=== PATIENT | female | born 1975 | race Caucasian/White ===

== ENCOUNTER 2020-05-31 08:03 | Emergency (ER) | payer MEDICAID, OTHER ==
[2020-05-31 09:20] LABS: A TYPE INFLUENZA AG NEGATIVE (NEGATIVE); B INFLUENZA AG NEGATIVE (NEGATIVE)
--- NOTE | 2020-05-31 09:38 | ER Document Report ---
ED General - General Chief Complaint: Cough Stated Complaint: CONGESTION,COUGH Time Seen by Provider: 05/31/20 09:16 Primary Care Provider: ZENAIDA YBARRA MD [Primary Care Provider] - Follow up as needed - [facility] Notes: Patient is a 44-year-old female with no significant medical history who presents for shortness of breath and productive cough for the past week. Patient states she had a telemed visit with her primary care a couple days ago and was prescribed an albuterol inhaler and doxycycline. Patient endorses nausea and a couple episodes of vomiting but attributes the symptoms to side effects of the doxycycline. Patient reports nasal congestion, myalgias, fatigue, and chills, but denies chest pain, fever, abdominal pain, diarrhea, sore throat, and headache. Patient also reports not feeling well for most of the summer and has had intermittent bilateral ankle swelling with redness. She also had an episode of her hips giving out causing her to fall over that occurred 2 weeks ago. - Related Data Allergies/Adverse Reactions: No Known Allergies Allergy (Unverified 05/31/20 08:16) Home Medications: Doxycycline Past Medical History - General Information source: Patient - Social History Smoking Status: Current Every Day Smoker Chew tobacco use (# tins/day): No Frequency of alcohol use: None Drug Abuse: None Family History: Reviewed & Not Pertinent Patient has homicidal ideation: No - Immunizations Hx Diphtheria, Pertussis, Tetanus Vaccination: No Review of Systems - Review of Systems Constitutional: No symptoms reported EENT: No symptoms reported Cardiovascular: No symptoms reported Respiratory: See HPI Gastrointestinal: No symptoms reported Genitourinary: No symptoms reported Female Genitourinary: No symptoms reported Musculoskeletal: See HPI Skin: No symptoms reported Hematologic/Lymphatic: No symptoms reported Neurological/Psychological: See HPI Physical Exam - Vital signs Vitals: Temp Pulse Resp BP Pulse Ox 97.7 F 96 18 130/81 H 95 05/31/20 08:08 05/31/20 08:08 05/31/20 08:08 05/31/20 08:08 05/31/20 08:08 - Notes Notes: PHYSICAL EXAMINATION: VITALS: Vitals reviewed and within normal limits. GENERAL: Patient in no acute distress but becomes tearful when discussing her symptoms. She is sitting upright in the bed. HEAD: Atraumatic, normocephalic. EYES: Pupils equal round and reactive to light, extraocular movements intact, sclera anicteric, conjunctiva are normal. ENT: nares patent, oropharynx clear without exudates. Moist mucous membranes. NECK: Normal range of motion, supple without lymphadenopathy. LUNGS: Expiratory wheezing noted throughout. No labored respirations and no accessory muscle use. HEART: Regular rate and rhythm without murmurs. ABDOMEN: Soft, nontender, normoactive bowel sounds. No guarding, no rebound. No masses appreciated. EXTREMITIES: Normal range of motion, no pitting or edema. No cyanosis. 5/5 strength bilateral lower extremities. No swelling or erythema noted to her bilateral ankles. NEUROLOGICAL: No focal neurological deficits. Moves all extremities spontaneously and on command. PSYCH: Normal mood, normal affect. SKIN: Warm, Dry, normal turgor, no rashes or lesions noted. Course - Re-evaluation Re-evalutation: Patient is a 44-year-old female who presents for shortness of breath and productive cough for the past week. Patient is currently taking doxycycline that was prescribed by her primary care provider. Patient is afebrile and vital signs are within normal limits. On exam, expiratory wheeze noted throughout with nonlabored respirations. Based on patient's normal lower extremities exam, I recommended following up with her PCP concerning her ankle swelling and leg weakness. Chest x-ray negative. WBC normal at 10.1, UA shows protein 30, ketones 20, specific gravity of 1.028 and trace leukocyte esterase. Urine culture ordered but no prescription antibiotics as patient denies dysuria. Rapid flu and strep negative. Lab work otherwise unremarkable. Based on exam and work-up suspicious for viral URI. Discussed results and diagnosis with patient. Patient will be discharged home. Return precautions and instructions to follow-up with primary care given. - Vital Signs Vital signs: Temp Pulse Resp BP Pulse Ox 97.8 F 72 16 153/92 H 100 05/31/20 11:59 05/31/20 11:59 05/31/20 11:59 05/31/20 11:59 05/31/20 11:59 - Laboratory Result Diagrams: 05/31/20 09:38 05/31/20 09:38 Laboratory results interpreted by me: 05/31/20 05/31/20 05/31/20 08:40 09:38 09:38 RDW 15.8 H Est GFR (MDRD) Non-Af 59 L Urine Protein 30 H Urine Ketones 20 H Urine Urobilinogen 2.0 H Ur Leukocyte Esterase TRACE H Discharge - Discharge Clinical Impression: Cough, Shortness of breath Upper respiratory infection Qualifiers: URI type: unspecified viral URI Qualified Code(s): J06.9 - Acute upper respiratory infection, unspecified Condition: Stable Disposition: HOME, SELF-CARE Additional Instructions: Your symptoms are likely due to a viral infection. The only treatment at this time is supportive care including drinking plenty of fluids, Tylenol and ibuprofen, as well as nausea medicines which you will be sent home with. Your s ymptoms will likely last for 7-10 days. Please return to the emergency department immediately if you become confused, have persistent vomiting, pass out, have severe headache, or have any other symptoms that are worrisome to you. Follow-up with your primary care doctor in the next several days. Referrals: ZENAIDA YBARRA MD [Primary Care Provider] - Follow up as needed
[2020-05-31] MEDS ORDERED: IPRATROPIUM/ALBUTEROL 0.5-2.5 MG/3 ML AMPUL NEB ONE (09:45)
[2020-05-31 10:30] LABS: ABSOLUTE EOSINOPHILS # (AUTO) 0.1 10^3/uL (0.0-0.6); ABSOLUTE LYMPHOCYTES (AUTO) 2.6 10^3/uL (0.5-4.7); ABSOLUTE MONOCYTES (AUTO) 0.7 10^3/uL (0.1-1.4); ABSOLUTE NEUT (AUTO) 6.7 10^3/uL (1.7-8.2); BASOPHILS % (AUTO) 0.3 % (0-2); EOSINOPHILS % (AUTO) 0.9 % (0-6); HEMATOCRIT 37.3 % (36.0-47.0); HEMOGLOBIN 12.8 g/dL (12.0-15.5); LYMPHOCYTES % (AUTO) 25.8 % (13-45); MEAN CORPUSCULAR HGB CONC 34.3 g/dL (32.0-36.0); MEAN CORPUSCULAR VOLUME 82 fl (80-97); MONOCYTES % (AUTO) 6.9 % (3-13); PLATELET COUNT 183 10^3/uL (150-450); RED BLOOD COUNT 4.58 10^6/uL (3.72-5.28); RED CELL DISTRIBUTION WIDTH 15.8 % (11.5-14.0); SEGMENTED NEUTROPHILS % (AUTO) 66.1 % (42-78); TOTAL CELLS COUNTED % (AUTO) 100 %; WHITE BLOOD COUNT 10.1 10^3/uL (4.0-10.5)
--- NOTE | 2020-05-31 10:31 | RADIOLOGY REPORT (SQ) ---
EXAM DESCRIPTION: CHEST SINGLE VIEW IMAGES COMPLETED DATE/TIME: 05/31/2020 9:07 am REASON FOR STUDY: shortness of breath COMPARISON: None. EXAM PARAMETERS: NUMBER OF VIEWS: One view. TECHNIQUE: Single frontal radiographic view of the chest acquired. RADIATION DOSE: NA LIMITATIONS: None. FINDINGS: LUNGS AND PLEURA: No opacities, masses or pneumothorax. No pleural effusion. MEDIASTINUM AND HILAR STRUCTURES: No masses. Contour normal. HEART AND VASCULAR STRUCTURES: Heart normal in size. Normal vasculature. BONES: No acute findings. HARDWARE: None in the chest. OTHER: No other significant finding. IMPRESSION: NO ACUTE RADIOGRAPHIC FINDING IN THE CHEST. TECHNICAL DOCUMENTATION: JOB ID: [id number] 2010 [employer]- All Rights Reserved Reading location - IP/workstation name: [email or web address]
[2020-05-31 10:54] LABS: ALBUMIN 3.7 g/dL (3.5-5.0); ALKALINE PHOSPHATASE 106 U/L (38-126); ANION GAP 9 (5-19); ASPARTATE AMINO TRANSFERASE 16 U/L (14-36); BILIRUBIN,DIRECT 0.4 mg/dL (0.0-0.4); BILIRUBIN,TOTAL 0.5 mg/dL (0.2-1.3); BLOOD UREA NITROGEN 16 mg/dL (7-20); CALCIUM 8.9 mg/dL (8.4-10.2); CARBON DIOXIDE 25 mmol/L (22-30); CHLORIDE 105 mmol/L (98-107); GLUCOSE 102 mg/dL (75-110); POTASSIUM 4.2 mmol/L (3.6-5.0); TOTAL PROTEIN 6.6 g/dL (6.3-8.2)
[2020-05-31 11:31] LABS: APPEARANCE,URINE SLIGHTLY-CLOUDY; BILIRUBIN,URINE NEGATIVE (NEGATIVE); COLOR,URINE YELLOW; GLUCOSE, URINE NEGATIVE (NEGATIVE); KETONES,URINE 20 mg/dL (NEGATIVE); LEUKOCYTE ESTERASE,URINE TRACE (NEGATIVE); NITRITE,URINE NEGATIVE (NEGATIVE); PROTEIN,URINE 30 mg/dL (NEGATIVE); URINE SPECIFIC GRAVITY 1.028
[2020-05-31 12:01] VITALS: BP 153/92
== END 2020-05-31 12:04 | disposition home or self-care (01) ==
LOC: ER 08:03
DX: J06.9 Acute upper respiratory infection, unspecified (principal); B97.89 Other viral agents as the cause of diseases classified elsewhere; R05 Cough; R06.02 Shortness of breath; R11.2 Nausea with vomiting, unspecified; R09.81 Nasal congestion; M79.10 Myalgia, unspecified site; R53.83 Other fatigue; R68.83 Chills (without fever); R53.1 Weakness; R06.2 Wheezing; F17.200 Nicotine dependence, unspecified, uncomplicated
CPT/HCPCS: 36415; 71045; 80053; 81001; 84443; 84703; 85025; 87070; 87086; 87804; 87880; 94640; 99284